=== PATIENT | female | born 1990 | race Caucasian/White ===

== ENCOUNTER 2021-01-05 18:18 | Emergency (ER) | payer BC ==
[~2021-01-05] VITALS: Ht 172.7 cm; Wt 97.5 kg
[2021-01-05] MEDS ORDERED: CRUTCH1 EACH (19:25)
[2021-01-05] MEDS ORDERED: HYDROCODON-ACE1 EA10 PO (19:25)
== END 2021-01-05 20:04 | disposition home or self-care (01) ==
LOC: ED 18:18
DX: S82.832A Other fracture of upper and lower end of left fibula, initial encounter for closed fracture (principal); X50.9XXA Other and unspecified overexertion or strenuous movements or postures, initial encounter; G43.909 Migraine, unspecified, not intractable, without status migrainosus; Z88.0 Allergy status to penicillin
CPT/HCPCS: 73590; 73610; 99283-25

== ENCOUNTER 2024-05-13 14:16 | Emergency (ER) | payer OTHER ==
[~2024-05-13] VITALS: Ht 172.7 cm; Wt 100.2 kg
[~2024-05-13 14:16] MED LIST: CRUTCH1 EACH; HYDROCODON-ACE1 EA10 PO
[2024-05-13] MEDS ORDERED: HYDROmorphone HCL 1 MG/ML SYR IV ONE ×2 (14:30→15:15)
[2024-05-13] MEDS ORDERED: ondansetron HCL 4 MG/2 ML VIAL IV ONE ×2 (15:15→15:30)
[2024-05-13] MEDS ORDERED: SUMATRIPTAN SU100 MG PO (16:22)
[2024-05-13] MEDS ORDERED: DULOXETINE HCL60 MG PO (16:22)
[2024-05-13] MEDS ORDERED: AMITRIPTYLINE H25 MG PO (16:22)
[2024-05-13] MEDS ORDERED: KETOROLAC TROMETHAMINE 30 MG/ML VIAL IV ONE (16:30)
[2024-05-13] MEDS ORDERED: MORPHINE SULFATE 4 MG/ML VIAL IV ONE (16:30)
[2024-05-13] MEDS ORDERED: ACETAMINOPHEN 1,000 MG/100 ML VIAL IV ONE (16:30)
[2024-05-13 17:08] LABS: BASOPHILS 0.5 % (0-2); EOSINOPHILS 1.3 % (0-6); HEMATOCRIT 45.2 % (35.0-50.0); HEMOGLOBIN 15.3 g/dL (12.0-18.0); LYMPHOCYTES 46.5 % (24-44); MCH 28.9 (27-36); MCHC 33.8 g/dl (30-36); MCV 85.5 fl (81-99); MONOCYTES 9.4 % (0-12); NEUTROPHILS 42.3 % (39-80); PLATELET COUNT 236 K/uL (140-440); RBC 5.29 M/ul (4.3-5.7); RDW 13.3 (10.5-15.0)
[2024-05-13] MEDS ORDERED: BUPIVACAINE HCL 0.5% 30 ML VIAL ONE (17:18)
[2024-05-13] MEDS ORDERED: SODIUM CHLORIDE 0.9% 100 ML IV ONE (17:18)
[2024-05-13 17:19] LABS: ALBUMIN/GLOBULIN RATIO 1.21 (1.1-2.4); BILIRUBIN, TOTAL 0.8 ng/dL (0.2-1.0); BUN/CREATININE RATIO 13.41 (6.0-28.6); CALCIUM 9.1 mg/dL (8.5-10.1); CREATININE, SERUM 0.82 mg/dL (0.55-1.02); PROTEIN, TOTAL 7.3 g/dL (6.4-8.2)
[2024-05-13] MEDS ORDERED: MIDAZOLAM HCL 2 MG/2 ML VIAL ONE (17:41)
[2024-05-13] MEDS ORDERED: MIDAZOLAM HCL 2 MG/2 ML VIAL IV ONE (18:15)
[2024-05-13] MEDS ORDERED: HYDROCODONE BIT/ACETAMINOPHEN 5/325 MG 1 TAB HOME.PACK PO ONE (19:30)
[2024-05-13] MEDS ORDERED: HYDROCODON-ACE1 EA10 PO (19:32)
[2024-05-13 19:39] VITALS: BP 153/88
--- NOTE | 2024-05-14 13:49 | EKG ---
[facility] [address] [facility] [place], [place] [address] S[address] Sinus tachycardia Nonspecific ST abnormality Abnormal ECG No previous ECGs available Confirmed by Kandy Whiting ([id number]) on 05/14/2024 1:49:35 PM Electronically Signed By: KANDY WHITING MD 05/14/24 1349 PATIENT NAME: TALA FISH HERMILO Electrocardiogram DATE OF : 88 PHYSICIAN: KANDY WHITING MD REPORT #: [id number] REPORT IS CONFIDENTIAL AND NOT TO BE RELEASED WITHOUT AUTHORIZATION
== END 2024-05-13 19:39 | disposition home or self-care (01) ==
LOC: ED 14:16
PROVIDERS: Emergency Medicine
DX: S52.571A Other intraarticular fracture of lower end of right radius, initial encounter for closed fracture (principal); S52.572A Other intraarticular fracture of lower end of left radius, initial encounter for closed fracture; W10.9XXA Fall (on) (from) unspecified stairs and steps, initial encounter; Z88.0 Allergy status to penicillin; Z79.899 Other long term (current) drug therapy
CPT/HCPCS: 25605; 29125; 36415; 64417; 70450; 73090; 73110; 80053; 84703; 85025; 93005; 93010; 99284-25; A9270; J0131; J1170; J1885; J2250; J2270; J2405

== ENCOUNTER 2024-05-15 07:20 | Day surgery (SDC) | payer OTHER ==
[~2024-05-15 07:20] MED LIST changes: +AMITRIPTYLINE H25 MG PO; +CEFAZOLIN SODIUM 2 GM/20 ML SYR IV SCH; +DULOXETINE HCL60 MG PO; +SUMATRIPTAN SU100 MG PO; +TRANEXAMIC ACID 2,000 MG in SODIUM CHLORIDE 0.9% 100 ML IV SCH
[2024-05-15 09:20] VITALS: BP 133/79
[2024-05-15] MEDS ORDERED: MIDAZOLAM HCL 2 MG/2 ML VIAL ONE ×2 (09:40→14:56)
[2024-05-15] MEDS ORDERED: BUPIVACAINE HCL 0.5% 30 ML VIAL ONE ×2 (09:41→14:45)
[2024-05-15] MEDS ORDERED: DEXAMETHASONE SOD PHOS 4 MG/ML VIAL ONE (09:41)
[2024-05-15] MEDS ORDERED: LIDOCAINE HCL 2% 5 ML SDV ONE (09:42)
--- NOTE | 2024-05-15 11:04 | NUR ---
1055-PT STATES HAVING 7/10 PAIN IN RIGHT ARM. STATES LEFT ARM IS NUMB. PT HAS REMOVED SPLINT FROM LEFT ARM. PT STATES IV IS PAINFUL AT INSERTION SITE. 1100-VO PER JENNIFER OCONNOR FOR MORPHINE 1MG-10MG PRN PAIN.
[2024-05-15] MEDS ORDERED: MORPHINE SULFATE 4 MG/ML VIAL IV PRN (11:15)
--- NOTE | 2024-05-15 11:40 | NUR ---
1127-PAIN MEDICATION GIVEN PER EMAR. CALL LIGHT WITHIN REACH.
--- NOTE | 2024-05-15 11:56 | NUR ---
PT RATES PAIN A 4/10 AND THIS IS TOLERABLE FOR HER. WARM BLANKET PROVIDED. NO OTHER NEEDS AT THIS TIME. CALL LIGHT WITHIN REACH.
[2024-05-15] MEDS ORDERED: OXYCODONE HCL 5 MG TAB PO PRN (13:30)
[2024-05-15] MEDS ORDERED: DICLOFENAC SODI75 MG PO (14:18)
[2024-05-15] MEDS ORDERED: OXYCODONE HCL5 MG PO (14:18)
--- NOTE | 2024-05-15 14:30 | NUR ---
05/15/24 1430 Rosanne Wolff 1420- PT ARRIVES TO PACU NONAROUSABLE TO STIMULI WITH AN OPA IN PLACE, PT ALSO NEEDING A CHIN LIFT TO MAINTAIN PATENT AIRWAY. RESP EVEN AND UNLABORED. OXYGEN SAT MID TO HIGH 90'S ON 6L VIA MASK. ICE PACK TO LEFT WRIST AND ELEVATED ON A PILLOW.
[2024-05-15] MEDS ORDERED: fentaNYL citrate 50 MCG/ML SDV ONE (14:43)
[2024-05-15] MEDS ORDERED: MEPERIDINE HCL 25 MG/1 ML VIAL IV PRN (14:45)
[2024-05-15] MEDS ORDERED: fentaNYL citrate 100 MCG/2 ML VIAL IV PRN (14:45)
[2024-05-15] MEDS ORDERED: ondansetron HCL 4 MG/2 ML VIAL IV PRN (14:45)
[2024-05-15] MEDS ORDERED: HYDROmorphone HCL 1 MG/ML SYR IV PRN (14:45)
[2024-05-15] MEDS ORDERED: NALOXONE HCL 0.4 MG SYR IV PRN (14:45)
[2024-05-15] MEDS ORDERED: ACETAMINOPHEN 1,000 MG/100 ML VIAL ONE (14:56)
[2024-05-15] MEDS ORDERED: KETOROLAC TROMETHAMINE 30 MG/ML VIAL IV ONE (15:00)
[2024-05-15 15:38] VITALS: BP 136/82
--- NOTE | 2024-05-15 15:48 | NUR ---
1535-PT BACK TO ROOM FROM PACU ON 2L VIA RI. RECIEVED REPORT FROM CHANDRIKA COFFMAN. RESP EVEN AND UNLABORED. RATES PAIN 2/10 WITH L WRIST, AND R WRIST 4/10. DRESSING IS CLEAN, DRY, AND INTACT. PT DRINKING WATER AND EATING CRACKERS. MOM AT BEDSIDE. CALL LIGHT WITHIN REACH. 1547-TITRATED O2 OFF. O2 SATS HIGH 90'S ON RA. NO OTHER NEEDS AT THIS TIME. CALL LIGHT WITHIN REACH.
[2024-05-15 16:50] VITALS: BP 150/88
--- NOTE | 2024-05-15 17:16 | NUR ---
LE 1640-PT UP TO RESTROOM. GAIT STEADY AND TOLERATED WELL. PT VOIDED 500ML OF YELLOW URINE. 1645-PT ABMULATES BACK TO ROOM. PT GETTING DRESSED, MOM IN ROOM TO HELP PT.
--- NOTE | 2024-05-15 17:19 | NUR ---
1649-PT SITTING IN BED DRESSED. RESP EVEN AND UNLABORED. RATES PAIN 3/10 WITH L WRIST. DENIES NAUSEA. DRESSING IS CLEAN, DRY, AND INTACT. 1654-WENT OVER DISCHARGE INSTRUCTIONS WITH PT AND MOM. ALL QUESTIONS ANSWERED. WENT OVER DISHCARGE MEDICATIONS. PT RATES PAIN A 3/10. PT AMBULATES TO WHEELCHAIR AND RIDE PROVIDED TO FRONT OF HOSPITAL WHERE MOM WAS WAITING WITH THE CAR.
[2024-05-15] MEDS ORDERED: DICLOFENAC SOD 75 MG TABEC PO SCH (21:00)
[2024-05-15] MEDS ORDERED: ASPIRIN 325 MG TAB PO SCH (21:00)
--- NOTE | 2024-05-17 07:02 | OR ---
[facility] [address] [facility] [place], [place] [address] Signed DATE OF OPERATION: 05/15/2024 SURGEON: Caesar Abarca MD PREOPERATIVE DIAGNOSIS: Left distal radius fracture, displaced. POSTOPERATIVE DIAGNOSIS: Left distal radius fracture, displaced. PROCEDURE PERFORMED: Open reduction and internal fixation of left distal radius. COFFEE MAKER: Jen Marie PA-C. Jen was present and critical for all portions of procedure. ANESTHESIA: General. ESTIMATED BLOOD LOSS: None. TOURNIQUET TIME: 47 minutes. IMPLANTS: Shonna medium distal radius plate with six screws. BRIEF HISTORY: Tala is a 33-year-old female with history of a ground level fall off the stairs on Wednesday. She suffered bilateral distal radius fractures right being nondisplaced, left being displaced and angulated. Risks and benefits of operative treatment of the left were discussed with her and she elected to proceed. PROCEDURE IN DETAIL: Once consent was obtained, she was taken to the operating room. After adequate anesthesia, she was placed on the operating table with a hand table. The arm was placed in well-padded proximal arm tourniquet and prepped and draped in a standard sterile fashion and exsanguinated using Esmarch bandage. Tourniquet was inflated to 200 mmHg. Electronically Signed By: CAESAR ABARCA MD 05/17/24 0702 PATIENT NAME: TALA FISH OPERATIVE REPORT DATE OF : 88 REPORT #: [id number] PHYSICIAN: CAESAR ABARCA MD PCP: BRIAN BOTELLO MD REPORT IS CONFIDENTIAL AND NOT TO BE RELEASED WITHOUT AUTHORIZATION [facility] [address] [place] [place] [address] Signed Standard Armando approach to the distal radius was taken through skin and subcutaneous tissue. The FCR was identified, retracted ulnarly and protected. Floor of the FCR sheath was opened up and blunt dissection was taken down to the pronator. The pronator was split longitudinally and elevated off the distal radius. The radius was then distracted at the fracture site and cleaned of debris. The lunate facet was carefully reduced. Once this was completed, the volar plate was attached with two screws to the distal portion of the radius. This was checked on biplanar fluoroscopy. The plate was then reduced to the shaft of the radius and secured with a screw. Excellent alignment screw length was obtained. Another screw was placed proximally, two more placed distally in the radial styloid and lunate facet. Once this was completed, a final radiograph showed good reduction and plate placement and screw lengths. The wound was copiously irrigated with normal saline. Pronator was closed with 3-0 Monocryl. The subcutaneous tissue with 3-0 Monocryl and the skin with 3-0 Stratafix. Wound was sealed with LiquiBand and Steri-Strips, dressed with Allevyn dressing, sterile cast padding and a volar plaster splint. She tolerated the procedure well. All sponge, needle, and instrument counts were correct. Caesar Abarca MD BA/MODL /[id number] Copies: ~ Electronically Signed By: CAESAR ABARCA MD 05/17/24 0702 PATIENT NAME: TALA FISH OPERATIVE REPORT DATE OF : 88 REPORT #: [id number] PHYSICIAN: CAESAR ABARCA MD PCP: BRIAN BOTELLO MD REPORT IS CONFIDENTIAL AND NOT TO BE RELEASED WITHOUT AUTHORIZATION
== END 2024-05-15 16:55 | disposition home or self-care (01) ==
LOC: DS 07:20
PROVIDERS: ATTEND Specialist
PROC: 0PSJ04Z Reposition Left Radius with Internal Fixation Device, Open Approach (ICD-10-PCS; principal; 2024-05-15 13:25)
DX: S52.502A Unspecified fracture of the lower end of left radius, initial encounter for closed fracture (principal); W10.9XXA Fall (on) (from) unspecified stairs and steps, initial encounter; Z88.0 Allergy status to penicillin
CPT/HCPCS: 01830; 64417; 73100; C1713; J0131; J0690; J1100; J1885; J2001; J2250; J2270; J3010